=== PATIENT | male | born 1965 | race African-American/Black ===

== ENCOUNTER 2024-08-23 08:50 | Emergency (ER) | payer MEDICAID ==
[~2024-08-23] VITALS: Ht 180.3 cm; Wt 72.5 kg
[~2024-08-23 08:50] MED LIST: ASPI-1406 MT; ATOR10TA MT; COR6 PO; EMPA10TA PO; EPLE25TA22 MT; FERR325T6 PO; FURO-151 PO; LOSA25TA26 PO
[2024-08-23 09:03] VITALS: O2SAT 99
[2024-08-23 09:11] VITALS: BP 132/76; PULSE 106; RESP 18; TEMP 36.9; O2SAT 100
[2024-08-23] MEDS ORDERED: LOSA25TA26 MT (10:03)
[2024-08-23] MEDS ORDERED: CARV6.2548 MT (10:03)
[2024-08-23] MEDS ORDERED: AMOX-494 MT (10:04)
== END 2024-08-23 10:27 | disposition home or self-care (01) ==
LOC: ER 08:50
DX: R68.84 Jaw pain (principal); Z76.0 Encounter for issue of repeat prescription; Z79.899 Other long term (current) drug therapy; Z79.84 Long term (current) use of oral hypoglycemic drugs; Z79.82 Long term (current) use of aspirin; I50.9 Heart failure, unspecified
CPT/HCPCS: 99281; 99283

== ENCOUNTER 2024-09-05 14:53 | Inpatient (IN) | payer MEDICAID ==
[~2024-09-05] VITALS: Ht 180.3 cm; Wt 81.2 kg
[~2024-09-05 14:53] MED LIST changes: +AMOX-494 MT; +CARV6.2548 MT; +LOSA25TA26 MT
[2024-09-05] MEDS: ASPIRIN 81MG TABLET PO ONE (15:51)
[2024-09-05 16:01] LABS: HEMATOCRIT. 25.1 % (42.0-52.0); MEAN CORPUSCULAR HGB CONC 31.8 g/dL (31.0-37.0); MEAN CORPUSCULAR VOLUME 84.9 fL (80.0-94.0); MEAN PLATELET VOLUME 7.3 fl (7.4-10.4); PLATELET 400 x1000/uL (130-400); RED BLOOD CELL COUNT 2.96 mill/uL (4.7-6.1); RED CELL DISTRIBUTION WIDTH 19.7 % (11.6-14.6); WHITE BLOOD COUNT 7.2 x1000/uL (4.5-11.0)
[2024-09-05 16:02] LABS: DIFFERENTIAL COMMENT 1
[2024-09-05 16:04] LABS: CHLORIDE 112 mEq/L (98-107); POTASSIUM 4.6 mEq/L (3.5-5.1); SODIUM 142 mEq/L (136-145)
[2024-09-05 16:05] LABS: CARBON DIOXIDE 20 mEq/L (21-32)
[2024-09-05 16:06] LABS: CALCIUM 8.8 mg/dL (8.7-10.4)
[2024-09-05 16:10] LABS: CREATININE 1.6 mg/dL (0.6-1.3); GLUCOSE 99 mg/dL (70-105)
[2024-09-05 16:11] LABS: UREA NITROGEN BLOOD 26 mg/dL (9-23)
[2024-09-05 16:16] LABS: TROPONIN I HIGH SENSITIVITY 747 ng/L (3.0-53)
[2024-09-05 16:33] LABS: ANISOCYTOSIS 1+; PLATELET ESTIMATE NORMAL
[2024-09-05] MEDS ORDERED: HEPARIN 25,000 UNITS PREMIX 250 ML IV PRN (16:45)
[2024-09-05] MEDS ORDERED: HEPARIN 5000 UNITS/ML VIAL IV PRN ×2 (16:45)
[2024-09-05] MEDS: FUROSEMIDE 40MG/4ML VIAL IVP ONE (17:17)
[2024-09-05] MEDS ORDERED: HEPARIN 60 UNITS/KG BOLUS IV NR (17:45)
[2024-09-05 18:15] LABS: TROPONIN I HIGH SENSITIVITY 661 ng/L (3.0-53)
[2024-09-05] MEDS: HEPARIN 5000 UNITS/ML VIAL IV SCH (18:40)
[2024-09-05] MEDS: HEPARIN 25,000 UNITS PREMIX 250 ML IV SCH (18:41)
[2024-09-05 18:51] VITALS: BP 137/105; PULSE 111; RESP 18; TEMP 36.5
[2024-09-05 20:00] VITALS: BP 131/98; PULSE 119; RESP 20; TEMP 36.6; O2SAT 96
[2024-09-05] MEDS ORDERED: ENOXAPARIN 40MG/0.4ML SYR SUBCUT SCH (21:00)
[2024-09-05] MEDS ORDERED: ACETAMINOPHEN 325MG TABLET PO PRN ×2 (21:00)
[2024-09-05] MEDS ORDERED: ONDANSETRON HCL 4MG/2ML INJ IV PRN (21:00)
[2024-09-05] MEDS ORDERED: GUAIFENESIN 200MG/10ML SUGAR FREE UDC PO PRN (21:00)
[2024-09-05] MEDS: FUROSEMIDE 40MG/4ML VIAL IV SCH (22:15)
[2024-09-05] MEDS: IPRATROPIUM/ALBUTEROL 0.5-3(2.5)MG/3ML NEB HHN SCH (22:15)
[2024-09-05] MEDS: ATORVASTATIN CALCIUM 10MG TABLET PO SCH (22:15)
[2024-09-05] MEDS: CARVEDILOL 6.25 MG TABLET PO SCH (22:30)
[2024-09-06] VITALS (7 sets, daily range): BP systolic 100–130; BP diastolic 67–94; PULSE 88–109; RESP 16–20; TEMP 36.2–36.9; O2SAT 95–97
[2024-09-06] MEDS ORDERED: HEPARIN BOLUS PRN aPTT <30 IV
[2024-09-06] MEDS: HEPARIN BOLUS PRN aPTT 30-44 IV (02:56)
[2024-09-06] MEDS: AZITHROMYCIN 500MG/250ML 250 ML IV SCH (03:10)
[2024-09-06] MEDS: CEFTRIAXONE 1GM/50ML 50 ML IV SCH (04:19)
[2024-09-06 05:43] LABS: *AMPHETAMINES SCREEN URINE NEGATIVE (NEGATIVE); *BARBITURATES SCREEN URINE NEGATIVE (NEGATIVE); *BENZODIAZEPINES SCREEN URINE NEGATIVE (NEGATIVE); *COCAINE SCREEN URINE NEGATIVE (NEGATIVE); METHADONE URINE SCREEN NEGATIVE (NEGATIVE); OPIATES URINE SCREEN NEGATIVE (NEGATIVE); PHENCYCLIDINE URINE SCREEN NEGATIVE (NEGATIVE)
[2024-09-06 05:44] LABS: CANNABINOID URINE SCREEN NEGATIVE (NEGATIVE); ECSTASY MDMA SCREEN URINE NEGATIVE (NEGATIVE)
[2024-09-06] MEDS: PANTOPRAZOLE 40MG DR TABLET PO SCH (06:54)
[2024-09-06 09:45] LABS: INR 1.3; PROTHROMBIN TIME 13.5 sec (9.6-11.0)
[2024-09-06 09:47] LABS: POTASSIUM 4.2 mEq/L (3.5-5.1)
[2024-09-06 09:48] LABS: CALCIUM 8.3 mg/dL (8.7-10.4)
[2024-09-06 09:49] LABS: HEMATOCRIT. 22.6 % (42.0-52.0); HEMOGLOBIN. 7.1 g/dL (14.0-18.0); MEAN CORPUSCULAR HEMOGLOBIN 26.4 pg (28.0-32.0); MEAN CORPUSCULAR HGB CONC 31.5 g/dL (31.0-37.0); MEAN CORPUSCULAR VOLUME 83.5 fL (80.0-94.0); MEAN PLATELET VOLUME 7.3 fl (7.4-10.4); PLATELET 371 x1000/uL (130-400); RED BLOOD CELL COUNT 2.71 mill/uL (4.7-6.1); WHITE BLOOD COUNT 6.8 x1000/uL (4.5-11.0)
[2024-09-06 09:52] LABS: CREATININE 1.8 mg/dL (0.6-1.3)
[2024-09-06] MEDS: IPRATROPIUM/ALBUTEROL 0.5-3(2.5)MG/3ML NEB HHN SCH (09:57)
[2024-09-06 10:03] LABS: DIFFERENTIAL COMMENT 1
[2024-09-06] MEDS: FERROUS SULFATE 325MG TABLET PO SCH (10:35)
[2024-09-06] MEDS: ASPIRIN 81MG EC TABLET PO SCH (10:35)
[2024-09-06] MEDS: MAGNESIUM 1 G PREMIX 100 ML IV NR (10:37)
[2024-09-06] MEDS: LOSARTAN 25 MG TABLET PO SCH (10:37)
[2024-09-06] MEDS: ENOXAPARIN 80MG/0.8ML SYR SUBCUT SCH (12:24)
[2024-09-06] MEDS ORDERED: METOPROLOL TARTRATE 5MG/5ML VIAL IV PRN (12:30)
[2024-09-06 13:18] LABS: CLARITY URINE CLEAR (CLEAR); COLOR URINE YELLOW (YELLOW); GLUCOSE URINE NEGATIVE (NEGATIVE); KETONES URINE NEGATIVE (NEGATIVE); LEUKOCYTE ESTERASE URINE 1+ (NEGATIVE); NITRITE URINE NEGATIVE (NEGATIVE); OCCULT BLOOD URINE NEGATIVE (NEGATIVE); PH URINE 5.5 (4.5-8.0); PROTEIN URINE NEGATIVE (NEGATIVE); SPECIFIC GRAVITY URINE 1.007 (1.005-1.030)
[2024-09-06 13:39] LABS: BACTERIA URINE NONE SEEN; RBC URINE 0-2 /hpf (0-2); SQUAMOUS EPITHELIAL CELL URINE RARE /lpf (RARE/1+); YEAST URINE NONE SEEN
[2024-09-06 14:58] LABS: IRON 14 ug/dL (65-175)
[2024-09-06 15:01] LABS: TOTAL IRON BINDING CAPACITY 340 ug/dl (250-425)
[2024-09-06 15:05] LABS: FOLIC ACID (FOLATE) SERUM > 20.00 ng/mL (>5.38); VITAMIN B12 SERUM 1617 pg/mL (211-911)
[2024-09-06 17:25] LABS: TROPONIN I HIGH SENSITIVITY 488 ng/L (3.0-53)
[2024-09-06 20:20] LABS: ANISOCYTOSIS 1+; PLATELET ESTIMATE NORMAL
[2024-09-06] MEDS: DOCUSATE SODIUM 100MG CAPSULE PO PRN (22:05)
[2024-09-07] VITALS (9 sets, daily range): BP systolic 93–122; BP diastolic 70–84; PULSE 66–98; RESP 16–20; TEMP 36.4–36.6; O2SAT 91–98
[2024-09-07] MEDS: MAGNESIUM/ALUMINUM HYDROXIDE/SIMETHICONE 30ML UDC PO PRN (04:36)
[2024-09-07 06:31] LABS: HEMATOCRIT 23.7 % (42.0-52.0); HEMOGLOBIN 7.5 g/dL (14.0-18.0); MEAN CORPUSCULAR HEMOGLOBIN 26.7 pg (28.0-32.0); MEAN CORPUSCULAR HGB CONC 31.7 g/dL (31.0-37.0); MEAN CORPUSCULAR VOLUME 84.3 fL (80.0-94.0); PLATELET 385 x1000/uL (130-400); RED BLOOD CELL COUNT 2.81 mill/uL (4.7-6.1); WHITE BLOOD COUNT 6.3 x1000/uL (4.5-11.0)
[2024-09-07 06:55] LABS: POTASSIUM 3.6 mEq/L (3.5-5.1)
[2024-09-07 07:01] LABS: CREATININE 1.7 mg/dL (0.6-1.3)
[2024-09-07 08:35] LABS: THYROID STIMULATING HORMONE 0.65 uIU/mL (0.55-4.78)
[2024-09-07 08:39] LABS: T4 FREE 1.04 ng/dL (0.89-1.76)
[2024-09-07] MEDS ORDERED: REGADENOSON 0.4 MG/5 ML IV NR (09:15)
[2024-09-07] MEDS: ENOXAPARIN 40MG/0.4ML SYR SUBCUT SCH (17:15)
[2024-09-07 18:12] LABS: CREATINE KINASE MB FRACTION 3.3 ng/mL (0.5-3.6)
[2024-09-08] VITALS (7 sets, daily range): BP systolic 109–140; BP diastolic 72–94; PULSE 76–95; RESP 16–20; TEMP 36.4–36.8; O2SAT 91–100
[2024-09-08 01:38] LABS: CREATINE KINASE MB FRACTION 2.2 ng/mL (0.5-3.6)
[2024-09-08] MEDS ORDERED: REGADENOSON 0.4 MG/5 ML IV ONE (08:37)
[2024-09-08] MEDS ORDERED: CAFFEINE CITRATE 20MG/ML 3ML VIAL IV ONE (08:39)
[2024-09-08 11:30] LABS: HEMATOCRIT 27.7 % (42.0-52.0); MEAN CORPUSCULAR HEMOGLOBIN 26.6 pg (28.0-32.0); MEAN CORPUSCULAR HGB CONC 31.9 g/dL (31.0-37.0); MEAN CORPUSCULAR VOLUME 83.7 fL (80.0-94.0); PLATELET 432 x1000/uL (130-400); RED BLOOD CELL COUNT 3.32 mill/uL (4.7-6.1); WHITE BLOOD COUNT 6.9 x1000/uL (4.5-11.0)
[2024-09-08 11:36] LABS: POTASSIUM 4.3 mEq/L (3.5-5.1)
[2024-09-08 11:37] LABS: CALCIUM 8.7 mg/dL (8.7-10.4)
[2024-09-08 11:42] LABS: CREATININE 1.8 mg/dL (0.6-1.3)
[2024-09-08 11:43] LABS: CREATINE KINASE MB FRACTION 2.2 ng/mL (0.5-3.6)
[2024-09-08 11:49] LABS: HEMOGLOBIN 8.8 g/dL (14.0-18.0)
[2024-09-08] MEDS ORDERED: EMPA10TA PO (15:21)
[2024-09-08] MEDS ORDERED: ATOR10TA MT (15:21)
[2024-09-08] MEDS ORDERED: EPLE25TA22 MT (15:21)
[2024-09-08] MEDS ORDERED: COR6 PO (15:21)
[2024-09-08] MEDS ORDERED: ASPI-1406 MT (15:21)
[2024-09-08] MEDS ORDERED: FERR325T6 PO (15:21)
[2024-09-08] MEDS ORDERED: FURO-151 PO (15:21)
[2024-09-08] MEDS ORDERED: LOSA25TA26 PO (15:21)
[2024-09-09] MEDS ORDERED: FAMOTIDINE 20MG TABLET PO SCH (09:00)
== END 2024-09-08 18:02 | disposition home or self-care (01) | DRG 190 ==
LOC: ER 14:53 → EDBEDREQ 15:09 → 5WST 17:54
PROVIDERS: ADMIT Internal Medicine; ATTEND Internal Medicine
PROC: 4A02XM4 Measurement of Cardiac Total Activity, External Approach (ICD-10-PCS; principal; 2024-09-08)
PROC: 3E073KZ Introduction of Other Diagnostic Substance into Coronary Artery, Percutaneous Approach (ICD-10-PCS; 2024-09-08)
DX: I21.4 Non-ST elevation (NSTEMI) myocardial infarction (principal); J96.01 Acute respiratory failure with hypoxia; I50.23 Acute on chronic systolic (congestive) heart failure; N17.9 Acute kidney failure, unspecified; J44.1 Chronic obstructive pulmonary disease with (acute) exacerbation; I11.0 Hypertensive heart disease with heart failure; D64.9 Anemia, unspecified; I42.9 Cardiomyopathy, unspecified; I25.10 Atherosclerotic heart disease of native coronary artery without angina pectoris; I34.0 Nonrheumatic mitral (valve) insufficiency; E78.5 Hyperlipidemia, unspecified; Z79.82 Long term (current) use of aspirin; I25.2 Old myocardial infarction
CPT/HCPCS: 36415; 71045; 78452; 80048; 80061; 80305; 81003; 82270; 82550; 82553; 82607; 82746; 83036; 83540; 83550; 83605; 83735; 83880; 84145; 84439; 84443; 84484; 85025; 85027; 85044; 85379; 93005; 93017; 93306; 93970; 94070; 94640; 94664; 97165; 99291; A9500; J0456; J0696; J0706; J1644; J1650; J1940; J2785; J3475

== ENCOUNTER 2024-11-02 11:48 | Inpatient (IN) | payer MEDICAID ==
[~2024-11-02] VITALS: Ht 180.3 cm; Wt 76.7 kg
[~2024-11-02 11:48] MED LIST changes: -AMOX-494 MT; -CARV6.2548 MT; -LOSA25TA26 MT
[2024-11-02 12:53] LABS: BASOPHILS % 2.3 % (0.0-2.0); EOSINOPHILS % 0.4 % (0.0-5.0); HEMATOCRIT. 34.1 % (42.0-52.0); HEMOGLOBIN. 10.9 g/dL (14.0-18.0); LYMPHOCYTES % 18.4 % (20.0-50.0); MEAN CORPUSCULAR HEMOGLOBIN 27.8 pg (28.0-32.0); MEAN CORPUSCULAR VOLUME 86.7 fL (80.0-94.0); MEAN PLATELET VOLUME 7.4 fl (7.4-10.4); NEUTROPHILS % 69.9 % (40.0-76.0); PLATELET 232 x1000/uL (130-400); RED BLOOD CELL COUNT 3.94 mill/uL (4.7-6.1); RED CELL DISTRIBUTION WIDTH 22.1 % (11.6-14.6); WHITE BLOOD COUNT 5.2 x1000/uL (4.5-11.0)
[2024-11-02 12:56] LABS: ADD RBC MORPHOLOGY YES; DIFFERENTIAL COMMENT 1
[2024-11-02 13:03] LABS: CHLORIDE 107 mEq/L (98-107); POTASSIUM 3.7 mEq/L (3.5-5.1); SODIUM 138 mEq/L (136-145)
[2024-11-02 13:04] LABS: CALCIUM 9.1 mg/dL (8.7-10.4); CARBON DIOXIDE 19 mEq/L (21-32)
[2024-11-02 13:09] LABS: GLUCOSE 110 mg/dL (70-105); UREA NITROGEN BLOOD 25 mg/dL (9-23)
[2024-11-02 13:10] LABS: INR 1.3; PROTHROMBIN TIME 13.6 sec (9.6-11.0)
[2024-11-02 13:33] LABS: ANISOCYTOSIS 2+
[2024-11-02 13:34] LABS: PLATELET ESTIMATE NORMAL
[2024-11-02] MEDS: METHYLPREDNISOLONE SOD SUCC 125MG/2ML (ACT-O-VIAL) IV ONE (13:46)
[2024-11-02] MEDS: FUROSEMIDE 40MG/4ML VIAL IVP ONE (13:46)
[2024-11-02] MEDS: IPRATROPIUM/ALBUTEROL 0.5-3(2.5)MG/3ML NEB HHN ONE (13:50)
[2024-11-02 13:52] VITALS: PULSE 120; RESP 26; O2SAT 96
[2024-11-02 14:16] LABS: TROPONIN I HIGH SENSITIVITY 452 ng/L (3.0-53)
[2024-11-02] MEDS ORDERED: ACETAMINOPHEN 325MG TABLET PO PRN ×2 (15:00)
[2024-11-02] MEDS ORDERED: ONDANSETRON HCL 4MG/2ML INJ IV PRN (15:00)
[2024-11-02] MEDS: ASPIRIN 81MG EC TABLET PO SCH (15:27)
[2024-11-02] MEDS: ENOXAPARIN 40MG/0.4ML SYR SUBCUT SCH (15:27)
[2024-11-02] MEDS: LOSARTAN 25 MG TABLET PO SCH (15:47)
[2024-11-02] MEDS: EMPAGLIFLOZIN 10MG TABLET PO SCH (15:47)
[2024-11-02 17:30] VITALS: BP 140/79; PULSE 109; RESP 16; TEMP 36.7; O2SAT 97
[2024-11-02 17:48] VITALS: BP 140/79; PULSE 109; RESP 16; TEMP 36.7
[2024-11-02 20:00] VITALS: BP 141/108; PULSE 102; RESP 18; TEMP 36.7; O2SAT 99
[2024-11-02] MEDS: HALOPERIDOL LACTATE 5MG/ML VIAL IM SCH (20:15)
[2024-11-02] MEDS: ZOLPIDEM TARTRATE 5MG TABLET PO PRN (21:55)
[2024-11-02] MEDS: CLONIDINE 0.1MG TABLET PO PRN (21:56)
[2024-11-02] MEDS: CARVEDILOL 6.25 MG TABLET PO SCH (21:56)
[2024-11-02] MEDS: ATORVASTATIN CALCIUM 10MG TABLET PO SCH (21:56)
[2024-11-03] VITALS (7 sets, daily range): BP systolic 101–146; BP diastolic 69–111; PULSE 78–97; RESP 18–22; TEMP 36.6–37.7; O2SAT 95–99
[2024-11-03 00:42] LABS: TROPONIN I HIGH SENSITIVITY 445 ng/L (3.0-53)
[2024-11-03] MEDS: IPRATROPIUM/ALBUTEROL 0.5-3(2.5)MG/3ML NEB HHN PRN (04:05)
[2024-11-03] MEDS: FUROSEMIDE 40MG/4ML VIAL IVP SCH (09:00)
[2024-11-03 09:18] LABS: TROPONIN I HIGH SENSITIVITY 431 ng/L (3.0-53)
[2024-11-03 10:38] LABS: POTASSIUM 4.5 mEq/L (3.5-5.1)
[2024-11-03 10:39] LABS: BASOPHILS % 0.3 % (0.0-2.0); HEMATOCRIT. 36.1 % (42.0-52.0); HEMOGLOBIN. 11.7 g/dL (14.0-18.0); LYMPHOCYTES % 9.1 % (20.0-50.0); MEAN CORPUSCULAR HEMOGLOBIN 28.4 pg (28.0-32.0); MEAN CORPUSCULAR HGB CONC 32.4 g/dL (31.0-37.0); MEAN CORPUSCULAR VOLUME 87.9 fL (80.0-94.0); MEAN PLATELET VOLUME 7.7 fl (7.4-10.4); MONOCYTES % 5.8 % (2.0-8.0); NEUTROPHILS % 84.8 % (40.0-76.0); PLATELET 229 x1000/uL (130-400); RED BLOOD CELL COUNT 4.11 mill/uL (4.7-6.1); RED CELL DISTRIBUTION WIDTH 22.6 % (11.6-14.6); WHITE BLOOD COUNT 5.7 x1000/uL (4.5-11.0)
[2024-11-03 10:40] LABS: CALCIUM 8.9 mg/dL (8.7-10.4)
[2024-11-03 10:44] LABS: CREATININE 2.2 mg/dL (0.6-1.3)
[2024-11-03 11:06] LABS: DIFFERENTIAL COMMENT 1
[2024-11-03 18:05] LABS: CLARITY URINE CLEAR (CLEAR); COLOR URINE YELLOW (YELLOW); GLUCOSE URINE 3+ (NEGATIVE); KETONES URINE NEGATIVE (NEGATIVE); LEUKOCYTE ESTERASE URINE NEGATIVE (NEGATIVE); NITRITE URINE NEGATIVE (NEGATIVE); OCCULT BLOOD URINE NEGATIVE (NEGATIVE); PH URINE 5.5 (4.5-8.0); PROTEIN URINE NEGATIVE (NEGATIVE); SPECIFIC GRAVITY URINE 1.012 (1.005-1.030)
[2024-11-03 18:21] LABS: *AMPHETAMINES SCREEN URINE NEGATIVE (NEGATIVE); *BENZODIAZEPINES SCREEN URINE NEGATIVE (NEGATIVE)
[2024-11-03 18:22] LABS: *BARBITURATES SCREEN URINE NEGATIVE (NEGATIVE); *COCAINE SCREEN URINE PRESUMPTIVE POSITIVE (NEGATIVE); CANNABINOID URINE SCREEN PRESUMPTIVE POSITIVE (NEGATIVE); ECSTASY MDMA SCREEN URINE NEGATIVE (NEGATIVE); METHADONE URINE SCREEN NEGATIVE (NEGATIVE); OPIATES URINE SCREEN NEGATIVE (NEGATIVE); PHENCYCLIDINE URINE SCREEN NEGATIVE (NEGATIVE)
[2024-11-03 18:38] LABS: BACTERIA URINE TRACE; RBC URINE NONE SEEN /hpf (0-2); SQUAMOUS EPITHELIAL CELL URINE RARE /lpf (RARE/1+); WBC URINE 0-2 /hpf (0-2)
[2024-11-04] VITALS (7 sets, daily range): BP systolic 99–117; BP diastolic 62–87; PULSE 73–94; RESP 18–26; TEMP 36.5–37; O2SAT 95–98
[2024-11-04 06:10] LABS: BASOPHILS % 1.6 % (0.0-2.0); EOSINOPHILS % 2.1 % (0.0-5.0); HEMATOCRIT. 36.7 % (42.0-52.0); HEMOGLOBIN. 11.7 g/dL (14.0-18.0); LYMPHOCYTES % 18.6 % (20.0-50.0); MEAN CORPUSCULAR HEMOGLOBIN 27.8 pg (28.0-32.0); MEAN CORPUSCULAR HGB CONC 31.9 g/dL (31.0-37.0); MEAN CORPUSCULAR VOLUME 87.2 fL (80.0-94.0); MEAN PLATELET VOLUME 7.4 fl (7.4-10.4); MONOCYTES % 9.6 % (2.0-8.0); NEUTROPHILS % 68.1 % (40.0-76.0); PLATELET 264 x1000/uL (130-400); RED BLOOD CELL COUNT 4.21 mill/uL (4.7-6.1); RED CELL DISTRIBUTION WIDTH 22.9 % (11.6-14.6); WHITE BLOOD COUNT 8.7 x1000/uL (4.5-11.0)
[2024-11-04 06:23] LABS: DIFFERENTIAL COMMENT 1
[2024-11-04 06:45] LABS: CALCIUM 8.7 mg/dL (8.7-10.4); POTASSIUM 3.9 mEq/L (3.5-5.1)
[2024-11-04 06:50] LABS: CREATININE 2.2 mg/dL (0.6-1.3)
[2024-11-04 13:00] LABS: BG BASE EXCESS 1.5 mmol/L (-2.0-3.0); BG CARBOXYHEMOGLOBIN 0.5 % (0.5-1.5); BG DEOXYHEMOGLOBIN 7.8 % (0.0-5.0); BG FRACTION INSPIRED OXYGEN 21; BG HCO3 ACT 23.7 mmol/L (21.0-28.0); BG METHEMOGLOBIN 0.3 % (0.5-1.5); BG OXYGEN SATURATION 92.1 % (94.0-98.0); BG OXYHEMOGLOBIN 91.4 % (94.0-98.0); BG PCO2 30.7 mmHg (35.0-48.0); BG PH 7.506 (7.350-7.450); BG PO2 65.7 mmHg (83.0-108.0); BG SAMPLE SITE RIGHT RADIAL; BG TOTAL HEMOGLOBIN 13.5 g/dL (13.5-17.5); BG VENT MODE ROOM AIR
[2024-11-05] VITALS: BP 111/70; PULSE 88; RESP 18; TEMP 37; O2SAT 96
[2024-11-05 04:00] VITALS: BP 108/74; PULSE 91; RESP 20; TEMP 36.5; O2SAT 96
[2024-11-05 08:00] VITALS: BP 104/77; PULSE 99; RESP 18; TEMP 36.6; O2SAT 96
[2024-11-05 12:00] VITALS: BP 108/79; PULSE 90; RESP 17; TEMP 36.4; O2SAT 95
[2024-11-05 15:35] VITALS: BP 102/73; PULSE 78; RESP 19; TEMP 36.6; O2SAT 97
[2024-11-05 20:00] VITALS: BP 105/73; PULSE 91; RESP 18; TEMP 36.1; O2SAT 97
[2024-11-06] VITALS: BP 116/89; RESP 18; TEMP 36.4; O2SAT 98
[2024-11-06 04:00] VITALS: BP 116/86; PULSE 100; RESP 19; TEMP 36.2; O2SAT 99
[2024-11-06 08:00] VITALS: BP 130/95; PULSE 96; RESP 18; TEMP 36.5; O2SAT 98
[2024-11-06 12:00] VITALS: BP 123/45; PULSE 75; RESP 20; TEMP 37.2; O2SAT 94
[2024-11-06 12:37] LABS: BG CARBOXYHEMOGLOBIN 0.6 % (0.5-1.5); BG DEOXYHEMOGLOBIN 4.8 % (0.0-5.0); BG FRACTION INSPIRED OXYGEN 28; BG HCO3 ACT 20.2 mmol/L (21.0-28.0); BG OXYGEN SATURATION 95.2 % (94.0-98.0); BG OXYHEMOGLOBIN 94.6 % (94.0-98.0); BG PCO2 21.1 mmHg (35.0-48.0); BG PH 7.599 (7.350-7.450); BG PO2 76.8 mmHg (83.0-108.0); BG SAMPLE SITE RIGHT RADIAL; BG TOTAL HEMOGLOBIN 15.3 g/dL (13.5-17.5); BG VENT MODE NASAL CANNULA
[2024-11-06 16:00] VITALS: BP 133/91; PULSE 101; RESP 20; TEMP 37; O2SAT 95
[2024-11-06 16:22] LABS: HEMATOCRIT. 43.4 % (42.0-52.0); HEMOGLOBIN. 14.1 g/dL (14.0-18.0); MEAN CORPUSCULAR HGB CONC 32.4 g/dL (31.0-37.0); MEAN CORPUSCULAR VOLUME 86.5 fL (80.0-94.0); MEAN PLATELET VOLUME 7.4 fl (7.4-10.4); PLATELET 304 x1000/uL (130-400); RED BLOOD CELL COUNT 5.02 mill/uL (4.7-6.1); RED CELL DISTRIBUTION WIDTH 22.7 % (11.6-14.6); WHITE BLOOD COUNT 6.6 x1000/uL (4.5-11.0)
[2024-11-06 16:25] LABS: DIFFERENTIAL COMMENT 1
[2024-11-06 16:30] LABS: INR 1.1; PROTHROMBIN TIME 11.9 sec (9.6-11.0)
[2024-11-06 16:33] LABS: POTASSIUM 4.5 mEq/L (3.5-5.1)
[2024-11-06 16:34] LABS: CALCIUM 9.1 mg/dL (8.7-10.4)
[2024-11-06 20:00] VITALS: BP 139/113; PULSE 95; RESP 19; TEMP 36.1; O2SAT 93
[2024-11-07] VITALS (7 sets, daily range): BP systolic 114–137; BP diastolic 79–102; PULSE 69–104; RESP 18–20; TEMP 35.7–36.6; O2SAT 93–100
[2024-11-07 00:01] LABS: ANISOCYTOSIS 2+; PLATELET ESTIMATE NORMAL
[2024-11-07 10:30] LABS: HEMATOCRIT. 47.3 % (42.0-52.0); HEMOGLOBIN. 14.4 g/dL (14.0-18.0); MEAN CORPUSCULAR HEMOGLOBIN 28.2 pg (28.0-32.0); MEAN CORPUSCULAR HGB CONC 30.5 g/dL (31.0-37.0); MEAN CORPUSCULAR VOLUME 92.3 fL (80.0-94.0); MEAN PLATELET VOLUME 7.5 fl (7.4-10.4); PLATELET 276 x1000/uL (130-400); RED BLOOD CELL COUNT 5.13 mill/uL (4.7-6.1); RED CELL DISTRIBUTION WIDTH 23.9 % (11.6-14.6); WHITE BLOOD COUNT 4.5 x1000/uL (4.5-11.0)
[2024-11-07 10:32] LABS: DIFFERENTIAL COMMENT 1
[2024-11-07 10:35] LABS: POTASSIUM 4.3 mEq/L (3.5-5.1)
[2024-11-07 10:37] LABS: CALCIUM 9.2 mg/dL (8.7-10.4)
[2024-11-07 10:41] LABS: CREATININE 2.2 mg/dL (0.6-1.3)
[2024-11-07] MEDS: LORAZEPAM 2MG/ML UD SYRINGE IV PRN (12:25)
[2024-11-07 16:08] LABS: ANISOCYTOSIS 2+; PLATELET ESTIMATE NORMAL
[2024-11-07] MEDS: ATORVASTATIN CALCIUM 40MG TABLET PO SCH (21:00)
[2024-11-07] MEDS: GABAPENTIN 100MG CAPSULE PO SCH (21:00)
[2024-11-07] MEDS: CLOPIDOGREL 75MG TABLET PO SCH (22:59)
[2024-11-08] VITALS: BP 124/92; PULSE 62; RESP 18; TEMP 36.6; O2SAT 98
[2024-11-08 04:00] VITALS: BP 107/80; PULSE 71; RESP 18; TEMP 36.5; O2SAT 98
[2024-11-08 08:00] VITALS: BP 125/85; PULSE 92; RESP 18; TEMP 36.7; O2SAT 94
[2024-11-08] MEDS: THIAMINE HCL 100MG TABLET PO SCH (08:48)
[2024-11-08 12:00] VITALS: BP 117/89; PULSE 90; RESP 18; TEMP 36.6; O2SAT 97
[2024-11-08 16:00] VITALS: BP 129/86; PULSE 85; RESP 20; TEMP 36.5; O2SAT 98
[2024-11-08 20:00] VITALS: BP 105/96; PULSE 85; RESP 18; TEMP 36.6; O2SAT 98
[2024-11-08] MEDS: ATORVASTATIN CALCIUM 40MG TABLET PO SCH (22:02)
[2024-11-09] VITALS: BP 109/95; PULSE 85; RESP 18; TEMP 36.5; O2SAT 98
[2024-11-09 04:00] VITALS: BP 110/97; PULSE 80; RESP 18; TEMP 36.1; O2SAT 98
[2024-11-09 08:00] VITALS: BP_SYST 116; BP_SYST 96; BP_DIAS 67; BP_DIAS 76; PULSE 84; PULSE 89; RESP 18; TEMP 35.7; TEMP 36.7; O2SAT 100; O2SAT 97
[2024-11-09 12:00] VITALS: BP 104/104; PULSE 70; RESP 19; TEMP 36.5; O2SAT 99
[2024-11-09 16:00] VITALS: BP 96/67; PULSE 89; RESP 18; TEMP 36.7; O2SAT 100
[2024-11-09] MEDS ORDERED: LOSA25TA26 PO (17:01)
[2024-11-09] MEDS ORDERED: EMPA10TA PO (17:01)
[2024-11-09] MEDS ORDERED: ASPI-1406 MT (17:01)
[2024-11-09] MEDS ORDERED: COR6 PO (17:01)
[2024-11-09] MEDS ORDERED: LIP40 PO (17:01)
[2024-11-09] MEDS ORDERED: THIA100T72 PO (17:01)
[2024-11-09] MEDS ORDERED: FURO-151 PO (17:01)
[2024-11-09] MEDS ORDERED: GABA-529 PO (17:01)
[2024-11-09] MEDS ORDERED: CLOP-31 PO (17:01)
[2024-11-09 20:00] VITALS: BP 100/60; PULSE 70; RESP 18; TEMP 37.2; O2SAT 98
[2024-11-10] VITALS: BP 101/70; PULSE 89; RESP 18; TEMP 37; O2SAT 96
[2024-11-10 04:00] VITALS: BP 128/60; PULSE 80; RESP 20; TEMP 37; O2SAT 98
[2024-11-10 08:00] VITALS: BP 113/86; PULSE 89; RESP 20; TEMP 36.6; O2SAT 96
[2024-11-10 11:41] VITALS: BP 118/77; PULSE 89; TEMP 98.2; O2SAT 98
[2024-11-10 12:00] VITALS: BP 118/87; PULSE 89; RESP 20; TEMP 36.8; O2SAT 96
== END 2024-11-10 12:00 | disposition home health service (06) | DRG 194 ==
LOC: ER 11:50 → 8WST 13:35 → EDBEDREQ 14:16 → EDBEDREQTM 14:16 → 8WST 11-06 11:04
PROVIDERS: ADMIT Internal Medicine; ATTEND Internal Medicine
DX: I13.0 Hypertensive heart and chronic kidney disease with heart failure and stage 1 through stage 4 chronic kidney disease, or unspecified chronic kidney disease (principal); J96.01 Acute respiratory failure with hypoxia; I63.9 Cerebral infarction, unspecified; G93.40 Encephalopathy, unspecified; N17.9 Acute kidney failure, unspecified; I42.9 Cardiomyopathy, unspecified; I50.23 Acute on chronic systolic (congestive) heart failure; I25.10 Atherosclerotic heart disease of native coronary artery without angina pectoris; E78.5 Hyperlipidemia, unspecified; F14.10 Cocaine abuse, uncomplicated; F12.10 Cannabis abuse, uncomplicated; N18.31 Chronic kidney disease, stage 3a; I25.2 Old myocardial infarction; Z79.02 Long term (current) use of antithrombotics/antiplatelets; Z79.82 Long term (current) use of aspirin; Z79.84 Long term (current) use of oral hypoglycemic drugs; Z79.899 Other long term (current) drug therapy
CPT/HCPCS: 36415; 36600; 70551; 71045; 80048; 80061; 80305; 81003; 82375; 82805; 82962; 83036; 83880; 84484; 85025; 93005; 93306; 93880; 94070; 94640; 94664; 94760; 97162; 97166; 97535; 98960; 99291; J1650; J1940; J2060; J2919